=== PATIENT | female | born 1985 | race Caucasian/White ===

== ENCOUNTER → 2017-01-16 | Outpatient (CLI) | payer OTHER ==
[~2017-01-16] VITALS: Ht 162.6 cm; Wt 99.5 kg
[~2017-01-16] MED LIST: PRENATAL TABLE1 EAC3 PO; TUMS500 MG PO
[2017-01-16 10:23] VITALS: BP 115/72
== END | disposition home or self-care (01) ==
LOC: IVINF 01-14 09:00
DX: Z31.82 Encounter for Rh incompatibility status (principal); Z3A.28 28 weeks gestation of pregnancy; Z88.0 Allergy status to penicillin
CPT/HCPCS: 96372; J2790

== ENCOUNTER 2017-03-07 14:47 | Inpatient (IN) | payer OTHER ==
[2017-03-07] VITALS (13 sets, daily range): BP systolic 129–172; BP diastolic 71–92
[~2017-03-07] VITALS: Ht 162.6 cm; Wt 108.2 kg
[2017-03-07 16:27] LABS: BASOPHIL COUNT 0.1 K/uL (0-0.1); EOSINOPHIL (%) 1.3 % (0-5); EOSINOPHIL COUNT 0.2 K/uL (0-0.3); HEMATOCRIT 34.9 % (36.0-46.0); IMMATURE GRANULOCYTE (%) 1.2 % (0.0-0.7); IMMATURE GRANULOCYTE COUNT 0.2 K/uL; LYMPHOCYTE COUNT 2.4 K/uL (1.0-2.8); MCH 29.1 PG (29.0-34.0); MCHC 33.8 G/DL (30.0-36.0); MCV 86.2 FL (83-99); MEAN PLAT.VOLUME 9.6 uM^3 (9.5-12.4); MONOCYTE (%) 6.2 % (3-12); MONOCYTE COUNT 0.8 K/uL (0-0.8); NEUTROPHIL (%) 71.6 % (45-76); NRBC (%) 0.2 /100 WBC (0-0); PLATELET COUNT 309 K/uL (156-360); RBC DIS.WIDTH-CV 15.9 % (11.8-14.6); RBC DIS.WIDTH-SD 48.2 % (39-53); RED BLOOD COUNT 4.05 M/uL (3.80-5.20); WHITE BLOOD COUNT 12.6 K/uL (4.1-10.2)
[2017-03-07 16:43] LABS: ALKALINE PHOSPHATASE 124 IU/L (3-129); ANION GAP 9 MEQ/L (2-14); CHLORIDE 105 MEQ/L (99-109); GFR ESTIMATE (CALCULATED) > 59 mL/min/; GLUCOSE 80 mg/dL (70-99); POTASSIUM 3.9 MEQ/L (3.7-5.4); SAMPLE HEMOLYSIS CHECK 0; SAMPLE ICTERIC CHECK 0; SAMPLE LIPEMIA CHECK 0; SODIUM 136 MEQ/L (136-147); TOTAL BILIRUBIN 0.3 MG/DL (0.0-1.0); UREA NITROGEN (BUN) 13 mg/dL (9-23)
[2017-03-07 16:47] LABS: INTER. NORMALIZED RATIO 0.9; PROTHROMBIN TIME 9.7 SEC (10.2-12.9)
[2017-03-07 16:52] LABS: ADD MIUA? YES; BILIRUBIN NEGATIVE; BLOOD NEGATIVE; COLOR YELLOW ((YELLOW)); GLUCOSE (STRIP) NEGATIVE; KETONES NEGATIVE; LEUKOCYTES NEGATIVE; NITRITE NEGATIVE; PROTEIN (STRIP) 100; SPECIFIC GRAVITY 1.026 (1.000-1.030); UROBILINOGEN 0.2 MG/DL (0.2-1.0)
[2017-03-07 17:07] LABS: FIBRINOGEN 483 mg/dL (150-450)
[2017-03-07 17:12] LABS: BACTERIA RARE /HPF; EPITHELIAL CELLS RARE /HPF; MUCUS 1+ /LPF; RED BLOOD CELLS 0-5 /HPF (0-5); UCUL ADDED? NO; WHITE BLOOD CELLS 0-5 /HPF (0-5)
[2017-03-07 17:43] LABS: DRSB INTERNAL CONTROL PASS; PROBE CHECK PASS; SPECIMEN PROCESSING CONTROL PASS
[2017-03-07 19:22] LABS: LACTATE DEHYDROGENASE 168 IU/L (20-246); URIC ACID 7.7 mg/dL (3.1-9.2)
[2017-03-07 19:54] LABS: UR CREATININE CONCENTRATION 216.5 MG/DL
[2017-03-08] VITALS (48 sets, daily range): BP systolic 87–150; BP diastolic 48–92
[2017-03-09 00:01] VITALS: BP 132/67
[2017-03-09 02:28] VITALS: BP 119/68
[2017-03-09 06:58] LABS: EOSINOPHIL (%) 0 % (0-5); HEMATOCRIT 28.9 % (36.0-46.0); IMMATURE GRANULOCYTE COUNT 0.2 K/uL; INSTRUMENT ABS NEUTROPHIL CT 13.7 K/uL; MCH 29.1 PG (29.0-34.0); MCHC 33.2 G/DL (30.0-36.0); MCV 87.6 FL (83-99); MEAN PLAT.VOLUME 9.3 uM^3 (9.5-12.4); MONOCYTE (%) 4.9 % (3-12); MONOCYTE COUNT 0.8 K/uL (0-0.8); NEUTROPHIL (%) 82.2 % (45-76); NEUTROPHIL COUNT 13.7 K/uL (1.8-6.4); PLATELET COUNT 262 K/uL (156-360); RBC DIS.WIDTH-CV 16.4 % (11.8-14.6); RBC DIS.WIDTH-SD 51.7 % (39-53); WHITE BLOOD COUNT 16.6 K/uL (4.1-10.2)
[2017-03-09 11:07] VITALS: BP 129/61
[2017-03-09 14:15] VITALS: BP 106/59
[2017-03-09 19:30] VITALS: BP 119/62
[2017-03-09 22:30] VITALS: BP 137/85
[2017-03-10 02:36] VITALS: BP 135/77
[2017-03-10 07:35] VITALS: BP 136/80
[2017-03-10 11:06] VITALS: BP 145/70
[2017-03-10 14:52] VITALS: BP 140/75
[2017-03-10 23:00] VITALS: BP 132/83
[2017-03-11 07:43] VITALS: BP 135/75
[2017-03-11] MEDS ORDERED: FERROUS SULFAT325 MG PO (09:38)
[2017-03-11] MEDS ORDERED: ENDOCET 5-3251 EACH PO (09:38)
== END 2017-03-11 13:30 | disposition home or self-care (01) | DRG 765 ==
LOC: LDRP-OP 14:47 → 2WEST 14:48 → LDRP-OP 05-10 10:59
PROVIDERS: Advanced Practice Midwife; Obstetrics & Gynecology
PROC: 10D00Z1 Extraction of Products of Conception, Low, Open Approach (ICD-10-PCS; principal; 2017-03-08)
PROC: 3E0S3CZ (ICD-10-PCS; principal; 2017-03-08)
PROC: 3E033VJ Introduction of Other Hormone into Peripheral Vein, Percutaneous Approach (ICD-10-PCS; principal; 2017-03-08)
PROC: 00HU33Z Insertion of Infusion Device into Spinal Canal, Percutaneous Approach (ICD-10-PCS; principal; 2017-03-08)
DX: O14.14 Severe pre-eclampsia complicating childbirth (principal); O60.14X0 Preterm labor third trimester with preterm delivery third trimester, not applicable or unspecified; O99.214 Obesity complicating childbirth; E66.9 Obesity, unspecified; D62 Acute posthemorrhagic anemia; O63.9 Long labor, unspecified; Z3A.35 35 weeks gestation of pregnancy; Z37.0 Single live birth; O42.113 Preterm premature rupture of membranes, onset of labor more than 24 hours following rupture, third trimester; O61.9 Failed induction of labor, unspecified; O76 Abnormality in fetal heart rate and rhythm complicating labor and delivery; O99.02 Anemia complicating childbirth; Z68.34 Body mass index [BMI] 34.0-34.9, adult; Z88.0 Allergy status to penicillin; O99.62 Diseases of the digestive system complicating childbirth; K21.9 Gastro-esophageal reflux disease without esophagitis; O36.0930 Maternal care for other rhesus isoimmunization, third trimester, not applicable or unspecified; O13.4 Gestational [pregnancy-induced] hypertension without significant proteinuria, complicating childbirth
CPT/HCPCS: 80053; 81003; 82570; 83615; 84156; 84550; 85025; 85384; 85610; 85730; 86870; 86900; 86901; 86905; 86920; 87081; 87653; 88307; C1755; G0378; J0595; J0702; J1580; J2274; J3010; J3370; J3475; J7050; J7120; Q0169